=== PATIENT | male | born 1955 | race African-American/Black ===

== ENCOUNTER 2018-01-22 14:36 | Outpatient (CLI) | payer OTHER ==
--- NOTE | 2018-01-22 19:36 | RAD ---
RIGHT SHOULDER THREE VIEWS: 01/22/18 No fracture, dislocation, or AC joint widening was seen. On some views there is the suggestion of a l ittle bony spurring along the inferior glenoid lip. It is quite minimal. The visible adjacent ribs ap pear clear. IMPRESSION: No acute finding. POS: HOME
== END 2018-01-22 14:37 | disposition home or self-care (01) ==
LOC: BURRAD 14:36
PROVIDERS: ATTEND Family Medicine
DX: M25.511 Pain in right shoulder (principal)

== ENCOUNTER 2020-02-22 22:20 | Emergency (ER) | payer OTHER ==
[~2020-02-22 22:20] MED LIST: Bacitracin 1 PK ONE
[2020-02-22] MEDS ORDERED: Lidocaine 2% w/Epinephrine 1:200K 20 ML VIAL ONE (22:28)
== END 2020-02-22 22:57 ==
LOC: BURERS 22:20
DX: S51.812A Laceration without foreign body of left forearm, initial encounter (principal); W26.0XXA Contact with knife, initial encounter
CPT/HCPCS: 12002

== ENCOUNTER 2020-06-14 09:37 | Emergency (ER) | payer OTHER ==
[2020-06-14 10:23] LABS: #Basophils 0.1 thou/uL (0.0-0.2); #Lymphocytes 1.4 thou/uL (1.20-3.40); #Monocytes 0.5 thou/uL (0.11-0.59); #Neutrophils 2.5 thou/uL (1.40-6.50); %Basophils 1.6 % (0.0-1.0); %Eosinophils 0.9 % (0.0-10.0); %Monocytes 11.6 % (0.0-10.0); %Neutrophils 54.9 % (42.0-75.0); Eosinophils 2 % (0-10); Hemoglobin 16.8 g/dL (14.0-18.0); Lymphocytes 33 % (21-51); MDiff Complete? YES; Mean Corpuscular HGB CONC 32.7 g/dL (32.0-36.0); Mean Corpuscular Hemoglobin 31.7 pg (27.0-31.0); Mean Corpuscular Volume 96.9 fL (78.0-98.0); Mean Platelet Volume 7.3 fL (7.4-10.4); Monocytes 9 % (0-10); Neutrophil 56 % (42-75); Platelet Count 277 thou/uL (130-400); RBC Distribution Width 12.2 % (11.5-14.5); White Blood Cell (WBC) Count 4.6 thou/uL (4.8-10.8)
[2020-06-14 10:31] LABS: ALT (SGPT) 32 U/L (8-55); AST (SGOT) 66 U/L (5-34); Albumin 4.6 g/dL (3.4-4.8); Alkaline Phosphatase 78 U/L (40-110); Anion Gap 17 mmol/L (10-20); BUN (Urea Nitrogen) 12 mg/dL (8.4-25.7); Bilirubin, Total 0.9 mg/dL (0.2-1.2); Calc. Creatinine Clearance 0 mL/min (70-130); Calcium 9.4 mg/dL (7.8-10.44); Carbon Dioxide 25 mmol/L (23-31); Chloride 102 mmol/L (98-107); Globulin 3.5 g/dL (2.4-3.5); Glucose 119 mg/dL (80-115); Potassium 3.4 mmol/L (3.5-5.1); Protein, Total 8.1 g/dL (5.8-8.1); Sodium 141 mmol/L (136-145)
[2020-06-14] MEDS ORDERED: Iopamidol 370 76% 100 ML VIAL ONE (11:39)
[2020-06-14 11:55] LABS: Bilirubin Negative (Negative); Blood, Urine Trace (Negative); Clarity Clear (Clear); Glucose, Urine (Dipstick) Negative (Negative); Ketone, Urine Negative (Negative); Leukocyte Negative (Negative); Nitrite Negative (Negative); Protein, Urine (Dipstick) Negative (Neg-Trace); Specific Gravity, Urine 1.015 (1.005-1.030); Urobilinogen 0.2 mg/dL (Less than 2)
[2020-06-14 12:02] LABS: Bacteria/HPF None Seen HPF (None Seen); RBC/HPF 0-3 HPF (0-3); Squamous Epithelial 0-3 HPF (0-3); WBC/HPF None Seen HPF (0-3)
--- NOTE | 2020-06-14 13:55 | RAD ---
PORTABLE CHEST: 06/14/20 An AP portable film at 1059 is compared with an 06/03/16 study. The heart is normal in size and the lungs are clear. No infiltrate or effusion was seen. The mediasti num appears normal. IMPRESSION: No significant findings. POS: HOME
--- NOTE | 2020-06-14 13:56 | CT ---
CT ABDOMEN AND PELVIS WITH CONTRAST: DATE: 06/14/2020. FINDINGS: The lung bases are clear. The liver shows diffuse fatty infiltration but no focal findings. The spl een, pancreas, adrenal glands, kidneys, and abdominal aorta showed no acute findings. No stones were seen in the gallbladder. The bowel shows no distention, dilation, or inflammatory change. No free air or free fluid was prese nt. CT of the pelvis was remarkable for uniform thickening of the urinary bladder. The prostate is reall y not that large, but bladder outlet obstruction is in the differential, as well as cystitis. The fi ndings are diffuse and not focal, however. IMPRESSION: 1. Diffuse fatty infiltration of the liver. 2. Very thick urinary bladder wall. Findings discussed with Dr. Mueller at 1107 on 06/14/2020. CODE CR POS: HOME
== END 2020-06-14 12:19 | disposition home or self-care (01) ==
LOC: BURERS 09:37
DX: R53.1 Weakness (principal); R63.4 Abnormal weight loss; I10 Essential (primary) hypertension; F17.220 Nicotine dependence, chewing tobacco, uncomplicated
CPT/HCPCS: 36415; 71045; 74177; 80053; 81003; 81015; 82274; 83605; 83880; 84484; 85025; 93005; 94760; Q9967